=== PATIENT | female | born 1980 | race Caucasian/White ===

== ENCOUNTER 2019-07-10 07:26 | Emergency (ER) | payer MEDICAID ==
--- NOTE | 2019-07-10 07:52 | ERPHSYRPT ---
- History of Present Illness Time Seen by Provider: 07/10/19 07:52 Source: patient Exam Limitations: no limitations Physician History: 38 years old female with history of poorly controlled migraines, taking over-the -counter medications presented to the ER with sudden onset headache more in the frontal and occipital area, aggravated with movement/light, partial relief with sitting in a quiet dark room. Patient also having multiple episodes of nontender, nonbilious vomiting with start of this migraine since 5:30 AM today. No abdominal pain. Denies any numbness tingling or focal weakness. No blurry vision. No difficulty speech. does have similar symptoms multiple times in the past but this is one of the worse headache in her life. Timing/Duration: today, sudden, worse Quality: sharpness, throbbing Head Pain Location: frontal, occipital Severity of Pain-Max: severe Severity of Pain-Current: severe Recent Head Trauma: no recent headache/trauma, frequent headaches Modifying Factors: Improves With: exposure to light, movement Associated Symptoms: nausea/vomiting, No confusion, No dizziness, No facial pain , No fever/chills, No light-headedness, No loss of consciousness, No neck pain, No seizures, No stiff neck, No trouble walking Previous symptoms: same symptoms as today Allergies/Adverse Reactions: No Known Drug Allergies Allergy (Unverified 07/10/19 07:56) - Review of Systems Constitutional: No Symptoms Eyes: No Symptoms Ears, Nose, & Throat: No Symptoms Respiratory: No Symptoms Cardiac: No Symptoms Abdominal/Gastrointestinal: Nausea, Vomiting Genitourinary Symptoms: No Symptoms Musculoskeletal: No Symptoms Skin: No Symptoms Neurological: Headache Psychological: No Symptoms Endocrine: No Symptoms Hematologic/Lymphatic: No Symptoms Immunological/Allergic: No Symptoms - Nursing Vital Signs Nursing Vital Signs: Initial Vital Signs Pulse Rate 75 07/10/19 07:57 Respiratory Rate 18 07/10/19 07:57 Blood Pressure 141/97 07/10/19 07:57 Pain Scale Pain Intensity 0 - Physical Exam General Appearance: no apparent distress Eye Exam: PERRL/EOMI, eyes nml inspection Ears, Nose, Throat Exam: normal ENT inspection, TMs normal, pharynx normal Neck Exam: normal inspection, non-tender, supple, full range of motion, No meningismus, No Brudzinski, No Kernig's Respiratory Exam: normal breath sounds, lungs clear, respiratory distress, No chest tenderness Cardiovascular Exam: regular rate/rhythm, normal heart sounds, normal peripheral pulses Gastrointestinal/Abdominal Exam: soft, normal bowel sounds, No tenderness, No distention Back Exam: normal inspection Extremity Exam: normal inspection, normal range of motion Mental Status Exam: alert, oriented x 3, 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 Exam: normal hearing, normal speech, PERRL, No facial asymmetry, No facial droop, No facial weakness, No gaze palsy Coordination/Gait Exam: normal finger to nose, normal cerebellar function Motor/Sensory Exam: no motor deficit, no sensory deficit, no pronator drift, negative Babinski's sign DTR Exam: bicep (R): 2+, bicep (L): 2+, knee (R): 2+, knee (L): 2+ Skin Exam: normal color, warm SpO2 Interpretation: normal O2 Delivery: Room Air - Course Nursing assessment & vital signs reviewed: Yes Ordered Tests: Active Orders 24 hr Category Date Time Status HEAD WITHOUT CONTRAST [CT] Stat Exams 07/10/19 08:10 Completed HCG,QUALITATIVE URINE Stat Lab 07/10/19 08:08 Ordered Medication Summary Discontinued Medications Generic Name Dose Route Start Last Admin Trade Name Freq PRN Reason Stop Dose Admin Diphenhydramine HCl 25 mg 07/10/19 08:09 07/10/19 08:18 Benadryl 50 Mg/Ml IV 07/10/19 08:10 25 mg STAT ONE Administration Diphenhydramine HCl Confirm 07/10/19 08:14 Benadryl 50 Mg/Ml Administered 07/10/19 08:15 Dose 50 mg .ROUTE .STK-MED ONE Sodium Chloride 1,000 mls @ 999 mls/hr 07/10/19 08:07 07/10/19 09:23 Sodium Chloride 0.9% 1000 Ml IV 07/10/19 09:07 Infused .Q1H1M STA Infusion Sodium Chloride Confirm 07/10/19 08:14 Sodium Chloride 0.9% 1000 Ml Administered 07/10/19 08:15 Dose 1,000 mls @ ud .ROUTE .STK-MED ONE Ketorolac Tromethamine 30 mg 07/10/19 08:09 07/10/19 08:18 Toradol 30 Mg Injection IV 07/10/19 08:10 30 mg STAT ONE Administration Ketorolac Tromethamine Confirm 07/10/19 08:14 Toradol 30 Mg Injection Administered 07/10/19 08:15 Dose 30 mg .ROUTE .STK-MED ONE Metoclopramide HCl 10 mg 07/10/19 08:09 07/10/19 08:18 Reglan 10 Mg/2 Ml IV 07/10/19 08:10 10 mg STAT ONE Administration Metoclopramide HCl Confirm 07/10/19 08:14 Reglan 10 Mg/2 Ml Administered 07/10/19 08:15 Dose 10 mg .ROUTE .STK-MED ONE Ondansetron HCl 4 mg 07/10/19 08:07 07/10/19 08:18 Zofran 4 Mg/2 Ml Vial IV 07/10/19 08:08 4 mg STAT ONE Administration Ondansetron HCl Confirm 07/10/19 08:14 Zofran 4 Mg/2 Ml Vial Administered 07/10/19 08:15 Dose 4 mg .ROUTE .STK-MED ONE - Progress Progress: improved, re-examined Air Movement: good Progress Note: 38 years old is evaluated for sudden onset migraine. She is given lidocaine cocktail along with fluids, reevaluation patient is sleeping comfortably. She has nonfocal neuro exam. CT head is obtained as patient referred this is the worst headache of her life and it comes out negative for any acute findings. I have recommended outpatient neurology referral for further evaluation and to be placed on prophylactic medications. Discussed signs and symptoms of worsening return to the ER the patient seems understanding. At this point do not think she needs any further workup in the ER and is stable for discharge. 07/10/19 09:41 Blood Culture(s) Obtained: No Antibiotics given: No Counseled pt/family regarding: diagnosis, need for follow-up, smoking cessation - Departure Departure Disposition: Home Clinical Impression: Migraine Qualifiers: Migraine type: without aura Status migrainosus presence: without status migrainosus Intractability: not intractable Qualified Code(s): G43.009 - Migraine without aura, not intractable, without status migrainosus Condition: Stable Critical Care Time: No Referrals: DOCTOR,NO FAMILY [Primary Care Provider] - RAKESH DOWNS [ACTIVE STAFF] - (1-2 days for re evaluation) HEDY SENA [NON-STAFF PHY W/O PRIVILEGES] - (1-2 days for re evaluation) Additional Instructions: followup with primary care and neurology for reevaluation. Return to the ER for any worsening. Take Tylenol/ibuprofen as needed.
[2019-07-10] MEDS ORDERED: Sodium Chloride 0.9% 1000 ML 1,000 ML IV STA (08:07)
[2019-07-10] MEDS ORDERED: Zofran 4 MG/2 ML VIAL IV ONE (08:07)
[2019-07-10] MEDS ORDERED: BENADRYL 50 MG/ML IV ONE (08:09)
[2019-07-10] MEDS ORDERED: TORAdol 30 mg Injection IV ONE (08:09)
[2019-07-10] MEDS ORDERED: Reglan 10 MG/2 ML IV ONE (08:09)
[2019-07-10] MEDS ORDERED: BENADRYL 50 MG/ML ONE (08:14)
[2019-07-10] MEDS ORDERED: TORAdol 30 mg Injection ONE (08:14)
[2019-07-10] MEDS ORDERED: Sodium Chloride 0.9% 1000 ML 1,000 ML ONE (08:14)
[2019-07-10] MEDS ORDERED: Zofran 4 MG/2 ML VIAL ONE (08:14)
[2019-07-10] MEDS ORDERED: Reglan 10 MG/2 ML ONE (08:14)
--- NOTE | 2019-07-10 09:01 | XRAY ---
Indication: Headache. History of migraines. Multiple contiguous axial images obtained through the head without contrast. Comparison: None Normal appearing brain parenchyma, ventricles, and bony calvarium. Visualized paranasal sinuses and mastoid air cells are clear. Impression: Normal CT head without contrast exam.
[2019-07-10 09:58] VITALS: BP 117/91; PULSE 88; O2SAT 99
== END 2019-07-10 10:06 | disposition home or self-care (01) ==
LOC: ED 07:26
DX: G43.909 Migraine, unspecified, not intractable, without status migrainosus (principal)
CPT/HCPCS: 70450; 96360; 96374; 96375; 99284; J1200; J1885; J2405